=== PATIENT | male | born 1955 | race Two or more races ===

== ENCOUNTER 2025-02-10 09:42 | Outpatient (AMB) | payer MEDICARE, MEDICAID, SELFPAY ==
--- NOTE | 2025-02-10 09:57 | ORTHONT_ITS ---
Vital signs 02/10/25 09:58 Height 1.8 m Height Method Stated Weight 86.721 kg Weight Measurement Method Standing Scale BMI 26.6 BP 156/84 H Blood Pressure Source Automatic Cuff Blood Pressure Location Left Upper Arm Position Sitting Respiration 19 Pulse 86 Pulse Source Monitor Temp 97.8 F Temp Source Temporal Artery Scan Pulse Oximetry (%) 94 L Oxygen Delivery Method Room Air Med/Allergies Allergies & Medications Allergies No Known Allergies Allergy (Verified 02/10/25 09:58) Medication Reconciliation acetaminophen 500 mg capsule 500 mg PO Q6H PRN 02/10/25 [History Confirmed 02/10/25] Exam Exam Patient is in no acute distress and is cooperative with the examination today. Breathing is nonlabored. Patient has a normal mood and affect. Bilateral extremities were evaluated and demonstrates sensation intact to light touch. Palpable pedal pulses are present. No significant edema is present. Bilateral hips were examined. The patient has no pain with log roll of the hips. Internal rotation to 30 degrees and external rotation to 30 degrees is painless. Negative FADIR. Right knee was examined today. The right knee is in reasonable alignment. Range of motion from 0-120 degrees. Knee is stable to varus and valgus as well as AP translation with <5mm. Patient has a negative McMurrays. There is no pain with patellofemoral compression and no crepitus noted. The knee is nontender to palpation. Left knee was examined today. The left knee is in varus alignment. Range of motion from 0-115 degrees. Knee is stable to varus and valgus as well as AP translation with <5mm. Patient has a negative McMurrays. There is significant crepitus in his knee. The knee is tender to palpation medially. Assessment and Plan Problem List (1) Pain in left knee: Status: Acute Plan: Patient is a 69-year-old male with severe varus deformity and likely arthritis. I would like to get weightbearing x-rays to better evaluate it. He has tried significant conservative treatment clued anti-inflammatories and injections in the past. We will likely discuss surgical versus conservative options at the next visit. 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 4 ([id number]) MA Intake Visit Data Collection New Patient or Established: New Patient (never been to [facility]) Reason for Visit:: LEFT KNEE PAIN Seen by Clinical Staff ONLY (RN/MA): No Manpower Development Manager Required: Yes PCP or OBGYN visit in last 3 months: Yes Hx Now: No Do You Feel Safe at Home: Yes Authorities Contacted: N/A Questionairres Past Medical History Past Medical History Have you ever been diagnosed with any of the following: Cardiology Problems Hypertension: Yes Respiratory Problems Smoking: Yes (40+ YEARS) Smoking Cessation Counseling: No Smoking Exposure: Yes Subjective Visit Visit for: new patient and knee (LEFT) Immunization / Flu Flu Vaccine in the Last 12 Months: No Flu Vaccine Exclusion Criteria: Refused by Patient History of Present Illness Chief complaint: LEFT KNEE PAIN Date of injury / onset of symptoms: 5 YEARS Patient is a pleasant 69-year-old male with severe left knee pain. Has been ongoing for several years. Has tried injections in the past. He is also tried diclofenac cream as well as acetaminophen. The pain is affecting his quality life and happiness. Personal History Occupation: UNEMPLOYED Red flag PMH: smoker Pain Pain level (0-10): 6 Pain duration: WITH MOVEMENT Pain location: inside (medial) and anterior Pain quality: sharp, dull and aching Pain timing: increases with activity and stairs Associated signs & symptoms: numbness Ambulatory data Ambulatory device: none Treatments Number of previous injections: 1 Improvement with previous injections: Yes Improvement with PT: No Improvement with NSAIDS: no Review of Systems Review of Systems: All systems negative unless otherwise noted in HPI.
[2025-02-10 09:58] VITALS: BP 156/84; PULSE 86; RESP 19; TEMP 36.6; O2SAT 94; BMI 26.6
--- NOTE | 2025-02-10 10:11 | XR_ITS ---
Examination: Bilateral AP knees single view PA lateral axial left knee 3 views TECHNIQUE: Bilateral AP knees standing single view Standing PA left knee flexion, standing lateral left knee, axial left knee 3 views total 4 views Date and time: February 10, 2025 1035 hours INDICATIONS: Left knee pain 6 years. FINDINGS: Moderate narrowing medial joint space right knee Advanced narrowing [id number] medial joint space left knee Advanced osteoarthritis lateral and patellofemoral joints left knee Multiple ossified joint bodies below the patella IMPRESSION: Advanced left knee tricompartment osteoarthritis
== END 2025-02-10 10:22 | disposition home or self-care (01) ==
LOC: HODSRG 09:42
PROVIDERS: PCP Family Medicine; Referring Provider Family Medicine; Supervising Provider Orthopaedic Surgery Adult Reconstructive Orthopaedic Surgery; Visit Provider Orthopaedic Surgery Adult Reconstructive Orthopaedic Surgery
DX: M25.562 Pain in left knee (principal); M21.162 Varus deformity, not elsewhere classified, left knee; M17.12 Unilateral primary osteoarthritis, left knee
CPT/HCPCS: 73564; 99204; G0463